=== PATIENT | male | born 1975 | race Caucasian/White ===

== ENCOUNTER 2025-05-09 20:54 | Emergency (ER) | payer OTHER, SELFPAY ==
[2025-05-09 20:57] VITALS: BP 175/97
[2025-05-09 21:01] VITALS: BP 163/97
[2025-05-09 21:18] LABS: Hematocrit 39.0 % (39.0-52.0); Hemoglobin 13.4 g/dL (13.0-18.0); Mean Corp Hgb Conc. 34.4 g/dL (33.0-37.0); Mean Corpuscular Volume 86.3 fL (80.0-94.0); Nucleated Red Blood Cells % 0 % (-); Platelet Count 312 10^3/uL (130-400); Red Cell Dist. Width 14.4 % (11.5-14.5)
[2025-05-09 21:19] VITALS: BMI 24.5
[2025-05-09 21:47] LABS: ALT (SGPT) 13 U/L (0-50); AST (SGOT) 19 U/L (17-59); Albumin 4.7 g/dl (3.5-5.0); Alkaline Phosphatase 81 U/L (38-126); Blood Urea Nitrogen 16 mg/dl (9-20); Calcium 11.6 mg/dl (8.4-10.2); Carbon Dioxide 32 mmol/L (22-30); Chloride 99 mmol/L (98-107); Estimated Creatinine Clearance 93 ml/min; Glucose 92 mg/dl (70-99); Potassium 4.7 mmol/L (3.5-5.1); Sodium 133 mmol/L (135-145); Total Protein 7.6 g/dl (6.3-8.2); eGFR > 60.00
[2025-05-09 22:00] VITALS: BP 150/78
--- NOTE | 2025-05-09 22:06 | ED.GENMED ---
History of Present Illness
General
Chief Complaint: Blood Pressure Problem
Time Seen by Provider: 05/09/25 21:59
History of Present Illness
History of Present Illness:
49-year-old male with history of hypertension presents from [facility] due to uncontrolled hypertension. Provider documentation does not indicate where the patient's blood pressure was. He denies any symptoms, specifically
denies headaches or chest pain. He is on 10 mg of amlodipine and 100 mg of losartan daily, [facility] the patient does get as needed doses of clonidine or labetalol as needed for severely elevated blood pressures.
Review of Systems
Review of Systems
Allergies reviewed?: Yes
All Other Systems: ROS reviewed and negative except as documented in HPI and ROS
Phy Exam
Physical Exam
Physical Exam:
GEN: Well appearing, NAD, WDWN
HEENT: Oral mucosa moist, no scleral icterus
Cardiac: Regular rate and rhythm, no murmur
Lung: No respiratory distress, no tachypnea
MSK: No gross deformity or injuries
Skin: Good color, no pallor or jaundice, no rashes
Neuro: AO x3, moves all extremities freely
Psych: Calm, cooperative
Course
Orders/Labs/Results
Orders:
Orders
05/09/25 21:00
Electrocardiogram (*1) Urgent
Reason for Study: Hypertension, Benign
05/09/25 21:01
EKG- Treatment ONCE
05/09/25 21:08
Complete Blood Count/With Diff Urgent
Comprehensive Metabolic Panel Urgent
Abnormal Lab Results
05/09/25
21:08
RBC 4.52 L 10^6/uL
(4.70-6.10)
Absolute Neuts (auto) 6.8 H 10^3/uL
(1.4-6.5)
Absolute Monos (auto) 0.7 H 10^3/uL
(0.1-0.6)
Sodium 133 L mmol/L
(135-145)
Carbon Dioxide 32 H mmol/L
(22-30)
Calcium 11.6 H mg/dl
(8.4-10.2)
05/09/25 21:08
05/09/25 21:08
Vital Signs
Initial and Last Documented VS:
Initial Vital Signs
Temp Pulse Resp BP Pulse Ox
98.3 F 65 14 175/97 99
05/09/25 20:57 05/09/25 20:57 05/09/25 20:57 05/09/25 20:57 05/09/25 20:57
Last Documented Vital Signs
Temp Pulse Resp BP Pulse Ox
98.3 F 74 14 150/78 96
05/09/25 20:57 05/09/25 22:00 05/09/25 22:00 05/09/25 22:00 05/09/25 22:08
MDM/Problems Addressed
MDM/Problems Addressed:
Will recommend addition of hydrochlorothiazide as opposed to as needed medications. Patient is asymptomatic and has no signs or symptoms of endorgan damage
*Pulse Oximetry
SaO2: 96
Oxygen Mode of Delivery: Room air
Patient hypoxic: no
*Critical Care Note
Total Time (30-74mins, 75-104mins- exclusive of procedures): Not Applicable
ED Attending Note
-
Portions of this chart may have been created with voice recognition software.� Occasional wrong word or��sound alike� substitutions may have occurred due to the inherent limitations of voice recognition software.
Discharge Plan
Departure
Patient Disposition: Home (Routine Discharge)
Date of Disposition: 05/09/25
Time of Disposition: 22:08
Patient with high blood pressure during this ER visit?: No
Discharge Problem:
Hypertension
Instructions: High Blood Pressure (DC)
Prescriptions:
New
hydrochlorothiazide 12.5 mg tablet
12.5 mg PO DAILY Qty: 30 0RF
No Action
amlodipine 10 mg Tablet
10 mg PO Daily
losartan 100 mg Tablet
100 mg DAILY
Referrals:
[facility] [Family Provider, General]
Activity Restrictions/Additional Instructions:
Please add 12.5 mg HCTZ to patient's blood pressure regimen
Interventions
Interventions:
*Risk Screen - Suicide Last Done: 05/09/25 21:05
*General Assessment Last Done: 05/09/25 21:03
*Neglect/Abuse Screening Last Done: 05/09/25 21:19
*ED- Fall Risk Assessment Last Done: 05/09/25 21:19
*ED COVID-19 Vaccine History Last Done: 05/09/25 21:02
*ED Influenza Vaccine History Last Done: 05/09/25 21:02
*Nursing Disposition Last Done: 05/09/25 22:39
ED- Cardiac Assessment Last Done: 05/09/25 21:21
ED- Neurological Assessment Last Done: 05/09/25 21:21
ED- Pulmonary Assessment Last Done: 05/09/25 21:21
Discharge Date and Time
Discharge Date/Time: 05/09/25 22:40
Print Language: GUAMANIAN
== END 2025-05-09 22:40 | disposition home or self-care (01) ==
LOC: EMR 20:54
PROVIDERS: Emergency Medicine; EMERGENCY PHYSICIAN Emergency Medicine
DX: I10 Essential (primary) hypertension (principal); Z79.899 Other long term (current) drug therapy
CPT/HCPCS: 99283; 80053; 85025; 93005